=== PATIENT | female | born 1995 | race Caucasian/White ===

== ENCOUNTER 2021-12-24 11:54 | Emergency (ER) | payer MEDICAID, SELFPAY ==
[2021-12-24 11:58] VITALS: BP 146/98; PULSE 89; RESP 18; TEMP 36.6; O2SAT 99; BMI 19.8
--- NOTE | 2021-12-24 12:48 | ED.DENTAL ---
HPI - Dental/Oral General Chief complaint: Dental/Oral <Kelli Dow NP - Last Filed: 12/24/21 12:50> Stated complaint: Dental pain <Kelli Dow NP - Last Filed: 12/24/21 12:50> Time Seen by Provider: 12/24/21 12:20 <Kelli Dow NP - Last Filed: 12/24/21 12:50> Source: patient <Kelli Dow NP - Last Filed: 12/24/21 12:50> Mode of arrival: ambulatory <Kelli Dow NP - Last Filed: 12/24/21 12:50> Limitations: no limitations <Kelli Dow NP - Last Filed: 12/24/21 12:50> History of Present Illness HPI Narrative: 26-year-old female here with complaints of left lower dental pain for about 5-7 days. No known injury or trauma. Patient tells me that she knows she has extensive dental caries and is waiting for an appointment to see her dentist to have several teeth removed. She denies any fevers, chills, sore throat, cough, runny nose. She is using Motrin which does seem to help. <Kelli Dow NP - Last Filed: 12/24/21 12:50> Related Data Home medications: Previous Rx's Medication Instructions Recorded clindamycin HCl 300 mg capsule 300 mg PO BID 7 Days #14 cap 12/24/21 <ANETA Green Last Filed: 12/24/21 12:50> Allergies/adverse reactions: Allergies Allergy/AdvReac Type Severity Reaction Status Date / Time No Known Allergies Allergy Verified 12/24/21 12:21 <Kelli Dow NP - Last Filed: 12/24/21 12:50> Review of Systems Review of Systems: Yes all other systems are reviewed and are negative <ANETA Green Last Filed: 12/24/21 12:50> Constitutional: Constitutional: Reports no additional constitutional complaints, Denies body ache(s), Denies chills, Denies fever(s), Denies headache(s) and Denies weakness <Kelli Dow NP - Last Filed: 12/24/21 12:50> Eyes: Eyes: Reports no additional eye complaints and Denies change in vision <Kelli Dow NP - Last Filed: 12/24/21 12:50> ENT: Reports system reviewed and no additional complaints, except as documented, Reports dental pain, Denies dizziness, Denies headache(s), Denies nasal congestion, Denies nasal discharge and Denies neck pain <Kelli Dow NP - Last Filed: 12/24/21 12:50> Cardiovascular: Cardiovascular: Reports no additional cardiovascular complaints, Denies chest pain, Denies leg edema and Denies dyspnea <Kelli Dow NP - Last Filed: 12/24/21 12:50> Respiratory: Respiratory: Reports no additional respiratory complaints, Denies cough and Denies dyspnea <Kelli Dow NP - Last Filed: 12/24/21 12:50> Gastrointestinal: Gastrointestinal: Reports no additional gastrointestinal complaints, Denies abdominal pain, Denies diarrhea, Denies nausea and Denies vomiting <Kelli Dow NP - Last Filed: 12/24/21 12:50> Genitourinary: Genitourinary: Reports no additional female genitourinary complaints and Denies urinary incontinence <Kelli Dow NP - Last Filed: 12/24/21 12:50> Musculoskeletal: Musculoskeletal: Reports no additional musculoskeletal complaints, Denies back pain, Denies arthralgias, Denies joint swelling, Denies neck pain, Denies numbness and Denies tingling <Kelli Dow NP - Last Filed: 12/24/21 12:50> Integumentary/Breasts: Skin/Breast: Reports system reviewed and no additional complaints, except as docu and Denies rash <Kelli Dow NP - Last Filed: 12/24/21 12:50> Neurologic: Reports system reviewed and no additional complaints, except as documented, Denies Abnormal speech present, Denies dizziness, Denies headache(s), Denies numbness, Denies tingling and Denies weakness <Kelli Dow NP - Last Filed: 12/24/21 12:50> PMFSH Past Medical History Attestation statement: The following information was validated with the patient. <Kelli Dow NP - Last Filed: 12/24/21 12:50> Source: old records reviewed and nursing notes reviewed <Kelli Dow NP - Last Filed: 12/24/21 12:50> Social History Social History: Social History Advance Directives: No Advance Directives Information Provided: No Patient : No <Kelli Dow NP - Last Filed: 12/24/21 12:50> Physical Exam Vital Signs: Vital Signs: Last Vital Signs Temp 98 F 12/24/21 11:58 Pulse 89 12/24/21 11:58 Resp 18 12/24/21 11:58 BP 146/98 H 12/24/21 11:58 Pulse Ox 99 12/24/21 11:58 BMI result Body Mass Index 19.8 <Kelli Dow NP - Last Filed: 12/24/21 12:50> Vital Signs: Last Vital Signs Temp 98 F 12/24/21 11:58 Pulse 89 12/24/21 11:58 Resp 18 12/24/21 11:58 BP 146/98 H 12/24/21 11:58 Pulse Ox 99 12/24/21 11:58 BMI result Body Mass Index 19.8 <Rodney Issa MD - Last Filed: 12/24/21 16:18> Const: General: cooperative, healthy appearing, comfortable and no acute distress <Kelli Dow NP - Last Filed: 12/24/21 12:50> Orientation/consciousness: patient oriented x3 <Kelli Dow NP - Last Filed: 12/24/21 12:50> Limitations: no limitations <Kelli Dow NP - Last Filed: 12/24/21 12:50> HENMT: Head: Yes normal to inspection <Kelli Dow NP - Last Filed: 12/24/21 12:50> Ears: hearing grossly normal bilaterally and TM's normal bilaterally <Kelli Dow NP - Last Filed: 12/24/21 12:50> General nose exam: Normal external nose present <Kelli Dow NP - Last Filed: 12/24/21 12:50> Face and sinus: Yes normal facial exam <Kelli Dow NP - Last Filed: 12/24/21 12:50> Mouth: Normal oral and palatal mucosa present <Kelli Dow NP - Last Filed: 12/24/21 12:50> Teeth image: 1. Swelling, erythema, tenderness with no fluctuance or abscess noted <Kelli Dow NP - Last Filed: 12/24/21 12:50> Throat: Yes posterior oropharynx normal, Yes tonsils normal and Yes uvula midline <Kelli Dow NP - Last Filed: 12/24/21 12:50> Eyes: General: appearance normal, both eyes and all related structures <Kelli Dow NP - Last Filed: 12/24/21 12:50> Pupils: Equal, round and reactive pupils present <Kelli Dow NP - Last Filed: 12/24/21 12:50> Neck: Other: No trismus <Kelli Dow NP - Last Filed: 12/24/21 12:50> Neck: Yes normal visual inspection, Yes full ROM and Yes no lymphadenopathy <Kelli Dow NP - Last Filed: 12/24/21 12:50> Chest: Chest palpation & inspection: normal inspection of the chest <Kelli Dow NP - Last Filed: 12/24/21 12:50> Resp: Effort & Inspection: normal respiratory effort <Kelli Dow NP - Last Filed: 12/24/21 12:50> Auscultation: clear to auscultation bilaterally <Kelli Dow NP - Last Filed: 12/24/21 12:50> Cardio: Rate: regular rate <Kelli Dow NP - Last Filed: 12/24/21 12:50> Rhythm: regular rhythm <Kelli Dow NP - Last Filed: 12/24/21 12:50> Peripheral pulses: Peripheral pulses 2+ throughout <Kelli Dow NP - Last Filed: 12/24/21 12:50> GI: Inspection: Yes normal to inspection <Kelli Dow NP - Last Filed: 12/24/21 12:50> Palpation (GI): Soft to palpation and nontender <Kelli Dow NP - Last Filed: 12/24/21 12:50> Auscultation: normal bowel sounds <Kelli Dow NP - Last Filed: 12/24/21 12:50> Back/Spine/Pelvis: Thoracic/Lumbar Spine: thoracic and lumbar spine normal to inspection <Kelli Dow NP - Last Filed: 12/24/21 12:50> Skin: General skin exam: no rashes or lesions noted <Kelli Dow NP - Last Filed: 12/24/21 12:50> Neuro: General: patient oriented x3, no focal motor deficits and normal sensation to monofilament <Kelli Dow NP - Last Filed: 12/24/21 12:50> Cranial nerves: Yes Equal, round and reactive pupils present <Kelli Dow NP - Last Filed: 12/24/21 12:50> Cognition (Neuro): normal cognition <Kelli Dow NP - Last Filed: 12/24/21 12:50> Speech: No Abnormal speech present <Kelli Dow NP - Last Filed: 12/24/21 12:50> Gait exam (Neuro): Normal gait present <Kelli Dow NP - Last Filed: 12/24/21 12:50> Motor exam (neuro): 5/5 motor strength present throughout <Kelli Dow NP - Last Filed: 12/24/21 12:50> Extrem: General: Yes normal to inspection <Kelli Dow NP - Last Filed: 12/24/21 12:50> Course Course Course Narrative: 26-year-old female here with reports of left lower dental pain for 5-7 days. No fevers or chills. On exam the patient has some swelling, tenderness erythema at the left lower gumline. No trismus. Will start patient on oral antibiotics have her follow-up with dental clinic. Reviewed worrisome signs and symptoms of when to return to the emergency department. Comfortable discharge home. <Kelli Dow NP - Last Filed: 12/24/21 12:50> MDM - Dental/Oral Medical Records Attestation: I reviewed the patient's medical records. <Kelli Dow NP - Last Filed: 12/24/21 12:50> Lab Data Attestation: I reviewed the patient's lab results. <Kelli Dow NP - Last Filed: 12/24/21 12:50> Discharge Plan Discharge Clinical Impression: Toothache <Kelli Dow NP - Last Filed: 12/24/21 12:50> Patient Disposition: Home, Self-Care <Kelli Dow NP - Last Filed: 12/24/21 12:50> Instructions: Toothache (ED) <Kelli Dow NP - Last Filed: 12/24/21 12:50> Additional Instructions: Follow-up with dentist Salt water gargles Continue oragel Continue motrin for pain No smoking <Kelli Dow NP - Last Filed: 12/24/21 12:50> Prescriptions: New clindamycin HCl 300 mg capsule 300 mg PO BID 7 Days Qty: 14 RF: 0 <Kelli Dow NP - Last Filed: 12/24/21 12:50> Referrals: Gera Flor MD [Primary Care Provider] - 2 days (as needed) <Kelli Dow NP - Last Filed: 12/24/21 12:50> Interventions: ED Discharge Assessment Last Done: 12/24/21 12:25 <Kelli Dow NP - Last Filed: 12/24/21 12:50> Discharge Date/Time: 12/24/21 12:25 <Kelli Dow NP - Last Filed: 12/24/21 12:50>
== END 2021-12-24 12:25 | disposition home or self-care (01) ==
PROVIDERS: Emergency Provider Emergency Medicine; PCP Family Medicine
DX: K08.89 Other specified disorders of teeth and supporting structures (principal)
CPT/HCPCS: 99283